=== PATIENT | male | born 1995 | race Caucasian/White ===

== ENCOUNTER 2016-08-03 16:33 | Outpatient (CLI) | payer OTHER | END 2016-08-03 16:34 | disposition EMS.NT | LOC: EMS 16:33 | PROVIDERS: ATTEND Surgery | DX: S05.90XA Unspecified injury of unspecified eye and orbit, initial encounter (principal); X58.XXXA Exposure to other specified factors, initial encounter; Y92.039 Unspecified place in apartment as the place of occurrence of the external cause ==

== ENCOUNTER 2016-08-03 17:19 | Emergency (ER) | payer OTHER ==
[2016-08-03] MEDS ORDERED: PROPARACAINE 0.5% OPHTH DROPS 15 ML ONE (17:23)
== END 2016-08-03 17:55 | disposition home or self-care (01) ==
DX: T52.0X1A Toxic effect of petroleum products, accidental (unintentional), initial encounter (principal); T26.91XA Corrosion of right eye and adnexa, part unspecified, initial encounter; Y93.89 Activity, other specified; H66.003 Acute suppurative otitis media without spontaneous rupture of ear drum, bilateral
CPT/HCPCS: 99283; 99284; J3490

== ENCOUNTER 2017-09-09 22:48 | Emergency (ER) | payer MEDICAID, OTHER ==
[2017-09-09] MEDS ORDERED: LOPERAMIDE 2 MG CAPSULE PO STA (23:14)
[2017-09-09] MEDS ORDERED: SODIUM CHLORIDE 0.9% 1,000 ML IV ONE (23:14)
[2017-09-09] MEDS ORDERED: ONDANSETRON 4 MG/2 ML VIAL IVP STA (23:14)
[2017-09-09] MEDS ORDERED: KETOROLAC 60 MG/2 ML VIAL IVP STA (23:14)
--- NOTE | 2017-09-09 23:15 | ED Physician Documentation ---
PD HPI NVD - Stated complaint Stated Complaint: NAUSEA/HEADACHE/DIZZY - Chief complaint Chief Complaint: Abd Pain - History obtained from History obtained from: Patient - History of Present Illness Timing - onset: Today Timing - details: Abrupt onset, Still present Contributing factors: Bad food Similar symptoms before: No diagnosis Recently seen: Not recently seen - Additonal information Additional information: Patient is a 22 year old male with no significant past medical history who is presenting to the emergency department for nausea, vomiting and diarrhea. patient states that he ate [employer] earlier this afternoon. Patient states that about 2 hours ago he has been vomiting and had multiple episodes of diarrhea. Patient states that he called [employer] and they stated that another person had called as well with similar complaints. Review of Systems Ten Systems: 10 systems reviewed and negative GI: reports: Abdominal Pain, Nausea, Vomiting, Diarrhea PD PAST MEDICAL HISTORY - Past Medical History Cardiovascular: None Respiratory: None Endocrine/Autoimmune: None GI: None Psych: None Musculoskeletal: None - Past Surgical History Past Surgical History: Yes HEENT: Tonsil/Adenoidectomy - Present Medications Home Medications: Ambulatory Orders Medication Instructions Recorded Confirmed Amoxicillin 500 mg PO TID #30 capsule 08/03/16 Ondansetron Odt [Zofran] 4 mg TL Q6H PRN #14 tablet 09/10/17 - Allergies Allergies/Adverse Reactions: Allergies Allergy/AdvReac Type Severity Reaction Status Date / Time No Known Drug Allergies Allergy Verified 08/03/16 17:30 - Social History Does the pt smoke?: No Smoking Status: Never smoker Does the pt drink ETOH?: No Does the pt have substance abuse?: No - Immunizations Immunizations are current?: Yes - POLST Patient has POLST: No PD ED PE NORMAL - Vitals Vital signs reviewed: Yes - General General: Alert and oriented X 3 - HEENT HEENT: Atraumatic - Cardiac Cardiac: RRR, No murmur - Respiratory Respiratory: No respiratory distress - Derm Derm: Normal color, Warm and dry - Extremities Extremities: No deformity - Neuro Neuro: Alert and oriented X 3 PD ED PE EXPANDED - HEENT HEENT: Dry mucous membranes - Abdomen Abdomen: Tender to palpation, Generalized/diffuse. No: Rebound, Guarding Results - Vitals Vitals: Vital Signs - 24 hr 09/09/17 23:02 Temperature 37.2 C Heart Rate 107 H Respiratory 20 Rate Blood Pressure 101/59 L O2 Saturation 97 Oxygen O2 Source Room air PD MEDICAL DECISION MAKING - ED course Complexity details: reviewed old records, reviewed results, re-evaluated patient , d/w patient ED course: patient was seen and examined at bedside. patient was treated with a fluid bolus, zofran and loperamide. patient had no further episodes of emesis while in the emergency department. patient required no further work up at this time and was stable for discharge with outpatient follow up. - Sepsis Event Vital Signs: Vital Signs - 24 hr 09/09/17 23:02 Temperature 37.2 C Heart Rate 107 H Respiratory 20 Rate Blood Pressure 101/59 L O2 Saturation 97 Oxygen O2 Source Room air Departure - Departure Disposition: Home, Self Care Clinical Impression: Gastroenteritis Condition: Good Instructions: ED Gastroenteritis Bacterial Follow-Up: primary,care provider [Other] - As Needed Prescriptions: Ondansetron Odt [Zofran] 4 mg TL Q6H PRN #14 tablet PRN Reason: Nausea / Vomiting Comments: Your symptoms today are likely secondary to food poisoning or bacterial gastroenteritis. You should take the zofran as needed for nausea and stay well hydrated. You can take loperamide (Imodium) as needed for diarrhea. You should follow up with your doctor if symptoms persist. you may return to he emergency department for new, worsening or uncontrollable symptoms.
[2017-09-10] MEDS ORDERED: ONDANSETRON ODT 4 MG Prepack 2 TL STA (00:08)
[2017-09-10 00:25] VITALS: BP 110/60
== END 2017-09-10 00:23 | disposition home or self-care (01) ==
LOC: ED 22:48
DX: K52.9 Noninfective gastroenteritis and colitis, unspecified (principal)
CPT/HCPCS: 96361; 96374; 96375; 99283; A9270

== ENCOUNTER 2017-10-29 08:14 | Emergency (ER) | payer MEDICAID ==
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
[2017-10-29 08:45] VITALS: BP 126/81
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
== END 2017-10-29 09:50 | disposition home or self-care (01) ==
LOC: EDUNIT# → ED 08:14
DX: S63.502A Unspecified sprain of left wrist, initial encounter (principal); X50.9XXA Other and unspecified overexertion or strenuous movements or postures, initial encounter; Y92.009 Unspecified place in unspecified non-institutional (private) residence as the place of occurrence of the external cause
CPT/HCPCS: 29125; 99282; 99283

== ENCOUNTER 2017-10-29 17:46 | Outpatient (CLI) | payer MEDICAID | END 2017-10-29 17:47 | disposition critical access hospital (66) | LOC: EMS 17:46 | PROVIDERS: ATTEND Surgery | DX: M25.532 Pain in left wrist (principal); Y04.8XXA Assault by other bodily force, initial encounter | CPT/HCPCS: A0425; A0429; A0999 ==

== ENCOUNTER 2017-12-07 12:07 | Emergency (ER) | payer OTHER, MEDICAID ==
[2017-12-07 12:14] VITALS: BP 135/84
[2017-12-07] MEDS ORDERED: BUPIVACAINE 0.5% PF 10 ML VIAL SUBQ STA (12:59)
--- NOTE | 2017-12-07 13:00 | ED Physician Documentation ---
History of Present Illness - Stated complaint Stated Complaint: LEFT PINKY LAC - Chief complaint Chief Complaint: Laceration PD PAST MEDICAL HISTORY - Past Medical History Past Medical History: No Cardiovascular: None Respiratory: None Endocrine/Autoimmune: None GI: None Psych: None Musculoskeletal: None - Past Surgical History Past Surgical History: Yes HEENT: Tonsil/Adenoidectomy - Present Medications Home Medications: Ambulatory Orders Medication Instructions Recorded Confirmed No Known Home Medications 12/07/17 12/07/17 - Allergies Allergies/Adverse Reactions: Allergies Allergy/AdvReac Type Severity Reaction Status Date / Time No Known Drug Allergies Allergy Verified 12/07/17 12:14 - Social History Does the pt smoke?: No Smoking Status: Never smoker Does the pt drink ETOH?: No Does the pt have substance abuse?: No - Immunizations Immunizations are current?: Yes - POLST Patient has POLST: No Results - Vitals Vitals: Vital Signs - 24 hr 12/07/17 12:12 Temperature 37 C Heart Rate 67 Respiratory 18 Rate Blood Pressure 135/84 H O2 Saturation 99 Oxygen O2 Source Room air Procedures - Laceration (location) L 5th finger posterior mid phalange Length in cm: 1.5 Wound type: Linear Neurovascular status: Sensory intact, Motor intact Tendon involvement: Tendon intact Anesthesia: Marcaine 0.5% Wound Preparation: Irrigated copiously NS (tech Berta) Skin layer closure: Nylon, Size #-0 - enter number (5), Sutures - enter # (1) Other: Patient tolerated well, No complications, Neurovascular intact, Dressing applied, Tetanus UTD, Other (splint to avoid moving) Complexity: Simple PD MEDICAL DECISION MAKING - Sepsis Event Vital Signs: Vital Signs - 24 hr 12/07/17 12:12 Temperature 37 C Heart Rate 67 Respiratory 18 Rate Blood Pressure 135/84 H O2 Saturation 99 Oxygen O2 Source Room air Departure - Departure Disposition: 01 Home, Self Care Clinical Impression: Laceration Condition: Good Instructions: ED Laceration Hand Comments: Keep the wound clean Apply antibiotic ointment every day Sutures out in 7 days Wear the splint to avoid bending the finger and breaking the wound open Even with good wound care all wound have the chance of getting infected - please return for any signs of infection such as redness, streaks, drainage. Forms: Activity restrictions
[2017-12-07] MEDS ORDERED: BACITRACIN OINT TOP ONE (14:14)
== END 2017-12-07 14:45 | disposition home or self-care (01) ==
LOC: ED 12:07
DX: S61.217A Laceration without foreign body of left little finger without damage to nail, initial encounter (principal); W26.0XXA Contact with knife, initial encounter; Y99.0 Civilian activity done for income or pay
CPT/HCPCS: 1040M; 12001; 99281; 99283; A9270

== ENCOUNTER 2018-02-28 16:57 | Outpatient (CLI) | payer MEDICAID ==
--- NOTE | 2018-03-01 16:44 | XRAY Report ---
Reason: KNEE JOINT PAIN, RT, ANKLE JOINT PAIN, RT Procedure Date: 02/28/2018 Accession Number: [id number] / [id number] Procedure: XR - Ankle 3 View RT CPT Code: FULL RESULT: EXAM: RIGHT ANKLE RADIOGRAPHY EXAM DATE: 02/28/2018 05:44 PM. CLINICAL HISTORY: KNEE JOINT PAIN, RT, ANKLE JOINT PAIN, RT. COMPARISON: None. TECHNIQUE: 3 views. FINDINGS: Bones: No fractures or bone lesions. Joints: No effusion. No subluxations. The ankle mortise is normally aligned. Soft Tissues: No soft tissue swelling. IMPRESSION: Normal ankle radiography. RADIA
--- NOTE | 2018-03-01 16:45 | XRAY Report ---
Reason: KNEE JOINT PAIN, RT, ANKLE JOINT PAIN, RT Procedure Date: 02/28/2018 Accession Number: [id number] / [id number] Procedure: XR - Knee 3 View RT CPT Code: FULL RESULT: EXAM: RIGHT KNEE RADIOGRAPHY EXAM DATE: 02/28/2018 05:44 PM. CLINICAL HISTORY: KNEE JOINT PAIN, RT, ANKLE JOINT PAIN, RT. COMPARISON: None. TECHNIQUE: 3 views. FINDINGS: Bones: No fractures or bone lesions. Joints: No effusion. No subluxations. Soft Tissues: No soft tissue swelling. IMPRESSION: Normal knee radiography. RADIA
== END 2018-02-28 16:58 | disposition home or self-care (01) ==
LOC: DI 16:57
PROVIDERS: ATTEND Nurse Practitioner
DX: M25.561 Pain in right knee (principal); M25.571 Pain in right ankle and joints of right foot

== ENCOUNTER 2018-05-27 22:07 | Emergency (ER) | payer OTHER, MEDICAID ==
[2018-05-27] MEDS ORDERED: BUFFERED LIDOCAINE 10 ML SYRINGE SUBQ STA (23:34)
--- NOTE | 2018-05-28 00:18 | ED Physician Documentation ---
PD HPI UPPER EXT INJURY - Stated complaint Stated Complaint: L PINKY LAC - Chief complaint Chief Complaint: Laceration - History obtained from History obtained from: Patient, Family - History of Present Illness Location: Left, Finger (5th) Type of injury: Laceration Where injury occurred: Work Timing - onset: Today Timing - duration: Minutes Timing - details: Abrupt onset, Still present Improved by: Rest, Immobilization Worsened by: Moving, Palpating Associated symptoms: Numbness. No: Weakness Contributing factors: Work related. 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 He states that he has lost sensation to the distal right pinky after a prior laceration and he is not able to feel the tip of his finger adequately he believes this may be why he lacerated his finger today. Review of Systems Constitutional: denies: Fever Eyes: denies: Decreased vision Ears: denies: Ear pain Nose: denies: Congestion Throat: denies: Sore throat Respiratory: denies: Cough GI: denies: Vomiting : denies: Dysuria Skin: denies: Rash Musculoskeletal: reports: Extremity pain. denies: Neck pain, Back pain Neurologic: reports: Numbness. denies: Generalized weakness, Focal weakness, Difficulty speaking PD PAST MEDICAL HISTORY - Past Medical History Past Medical History: No Cardiovascular: None Respiratory: None Neuro: None Endocrine/Autoimmune: None GI: None : None HEENT: None Psych: None Musculoskeletal: None Derm: None - Past Surgical History Past Surgical History: Yes HEENT: Tonsil/Adenoidectomy - Present Medications Home Medications: Ambulatory Orders Medication Instructions Recorded Confirmed No Known Home Medications 12/07/17 12/07/17 - Allergies Allergies/Adverse Reactions: Allergies Allergy/AdvReac Type Severity Reaction Status Date / Time No Known Drug Allergies Allergy Verified 12/07/17 12:14 - Social History Does the pt smoke?: No Smoking Status: Never smoker Does the pt drink ETOH?: No Does the pt have substance abuse?: No - Immunizations Immunizations are current?: Yes - POLST Patient has POLST: No PD ED PE NORMAL - Vitals Vital signs reviewed: Yes (normal ) - General General: Alert and oriented X 3, No acute distress, Well developed/nourished - HEENT HEENT: Atraumatic, PERRL, EOMI - Respiratory Respiratory: No respiratory distress - Derm Derm: Normal color, Warm and dry, No rash - Extremities Extremities: Other (There is a 3cm laceration to the radial surface of the 5th digit on the left side and the laceration involves the cuticle but not the nail. 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, No motor deficit, No sensory deficit, Normal speech Eye Opening: Spontaneous Motor: Obeys Commands Verbal: Oriented GCS Score: 15 - Psych Psych: Normal mood, Normal affect Results - Vitals Vitals: Vital Signs - 24 hr 05/27/18 05/28/18 22:12 00:32 Temperature 36.6 C Heart Rate 66 69 Respiratory 20 16 Rate Blood Pressure 123/72 106/72 O2 Saturation 98 98 Oxygen O2 Source Room air Procedures - Laceration (location) left pinky Length in cm: 3 Wound type: Curved, Irregular, Flap, Clean Anesthesia: Lidocaine 1%, With bicarb Wound Preparation: Hibiclens, Irrigated copiously NS, Wound explored, To the base, Multiple flaps aligned Skin layer closure: Nylon, Interrupted, Size #-0 - enter number (5-0), Sutures - enter # (7) Other: Patient tolerated well, Neurovascular intact, Dressing applied, Tetanus UTD Complexity: Simple PD MEDICAL DECISION MAKING - ED course Complexity details: reviewed old records, reviewed results, re-evaluated patient, considered differential, d/w patient, d/w family ED course: 22 y/o male with a pinky laceration is repaired by suturing. Departure - Departure Disposition: 01 Home, Self Care Clinical Impression: Finger laceration Condition: Stable Instructions: ED Laceration Hand Follow-Up: Joselin Kinney DNP [Primary Care Provider] - Comments: Sutures should be removed in 7-10 days. Forms: Activity restrictions Discharge Date/Time: 05/28/18 00:35
[2018-05-28 00:33] VITALS: BP 106/72
== END 2018-05-28 00:35 | disposition home or self-care (01) ==
LOC: ED 22:07
DX: S61.217A Laceration without foreign body of left little finger without damage to nail, initial encounter (principal); W26.0XXA Contact with knife, initial encounter; Y93.G1 Activity, food preparation and clean up; Y92.89 Other specified places as the place of occurrence of the external cause; Y99.0 Civilian activity done for income or pay
CPT/HCPCS: 99283

== ENCOUNTER 2018-05-28 17:22 | Emergency (ER) | payer OTHER, MEDICAID ==
[2018-05-28 17:31] VITALS: BP 114/61
--- NOTE | 2018-05-28 17:35 | ED Physician Documentation ---
History of Present Illness - Stated complaint Stated Complaint: NEED RE-STITCHING LT FINGER - Chief complaint Chief Complaint: Laceration - History obtained from History obtained from: Patient - History of Present Illness Timing: Last night Pain level max: 8 - Additonal information Additional information: Patient is a previously healthy, right-handed 22-year-old male who was seen in the ED last night for accidental laceration to left pinky finger and was treated appropriately, including placement of stitches. Tetanus was updated. Patient denies new injury or signs of infection, but does report mild erythema and swelling, as well as pain to the area surrounding stitching. Patient also notes mild ecchymosis to this area. Patient reports previous injury to the left pinky finger that left him with decreased mobility that required physical therapy. Patient reports no improvement of symptoms with ice or elevation. Movement w orsens discomfort. Review of Systems Skin: reports: Laceration (s) Musculoskeletal: reports: Extremity pain PD PAST MEDICAL HISTORY - Past Medical History Past Medical History: No Cardiovascular: None Respiratory: None Neuro: None Endocrine/Autoimmune: None GI: None : None HEENT: None Psych: None Musculoskeletal: None Derm: None - Past Surgical History Past Surgical History: Yes HEENT: Tonsil/Adenoidectomy - Present Medications Home Medications: Ambulatory Orders Medication Instructions Recorded Confirmed No Known Home Medications 12/07/17 12/07/17 - Allergies Allergies/Adverse Reactions: Allergies Allergy/AdvReac Type Severity Reaction Status Date / Time No Known Drug Allergies Allergy Verified 05/28/18 17:29 - Social History Does the pt smoke?: No Smoking Status: Never smoker Does the pt drink ETOH?: No Does the pt have substance abuse?: No - Immunizations Immunizations are current?: Yes - POLST Patient has POLST: No PD ED PE NORMAL - General General: Alert and oriented X 3, No acute distress, Well developed/nourished - Cardiac Cardiac: Strong equal pulses (cap refill brisk) - Respiratory Respiratory: No respiratory distress - Derm Derm: Other (Stitches intact over distal aspect of left pinky finger pad with mild surrounding ecchymosis present. No significant damage noted to the nail or nailbed. No subungual hematoma.) - Extremities Extremities: No deformity, No tenderness to palpate - Neuro Neuro: Alert and oriented X 3, No sensory deficit. No: No motor deficit (Given pain and swelling, patient has slightly decreased function at PIP and DIP joint of left pinky finger. Patient also reports history of decreased movement from prior injury.) Results - Vitals Vitals: Vital Signs - 24 hr 05/28/18 17:28 Temperature 36.6 C Heart Rate 65 Respiratory 20 Rate Blood Pressure 114/61 O2 Saturation 100 Oxygen O2 Source Room air PD MEDICAL DECISION MAKING - ED course Complexity details: reviewed old records, considered differential, d/w patient ED course: Patient presenting for recheck of wound. Patient was seen in this ED last evening after accidental laceration to his left pinky finger. Patient was appropriately treated, including stitches placed. Patient reports pressure sensation and pain to area, but denies drainage or erythema that would be indicative of infection. Physical exam is relatively unremarkable. No wound dehiscence or signs of wound infection. Do not see other complications such as subungual hematoma. No concerns for bone or tendon involvement. Patient did have previous injury to this finger that limited mobility. At this time, do not feel patient requires further interventions, but again discussed appropriate wound care, return precautions, suture removal, and follow-up. Patient voiced understanding and is comfortable with discharge plan. Departure - Departure Disposition: 01 Home, Self Care Clinical Impression: Visit for wound check Condition: Good Instructions: ED Laceration All Follow-Up: Joselin Kinney DNP [Primary Care Provider] - Within 3 Days Comments: Please keep wound clean and dry, using running water and soap to clean. Please follow bandaging instructions. May apply Neosporin or bacitracin 1-2 times daily if needed. May use ibuprofen/Tylenol, as well as elevation and ice to help with swelling and pain. Follow-up with primary care physician in next 2-3 days and return as instructed for suture removal. Return to ED sooner if experience worsening symptoms or other concerns.
== END 2018-05-28 17:49 | disposition home or self-care (01) ==
LOC: ED 17:22
DX: S61.217A Laceration without foreign body of left little finger without damage to nail, initial encounter (principal); W26.0XXA Contact with knife, initial encounter; Y93.G1 Activity, food preparation and clean up; Y92.89 Other specified places as the place of occurrence of the external cause; Y99.0 Civilian activity done for income or pay; G89.18 Other acute postprocedural pain
CPT/HCPCS: 1040M; 12002; 99282; 99283

== ENCOUNTER 2018-08-31 14:44 | Outpatient (CLI) | payer MEDICAID ==
--- NOTE | 2018-08-31 16:10 | XRAY Report ---
Reason: SHORTNESS OF BREATH Procedure Date: 08/31/2018 Accession Number: [id number] / [id number] Procedure: WCP - Chest 2 View X-Ray CPT Code: 81371 FULL RESULT: EXAM: CHEST RADIOGRAPHY EXAM DATE: 08/31/2018 02:54 PM. CLINICAL HISTORY: SHORTNESS OF BREATH. COMPARISON: None. TECHNIQUE: 2 views. FINDINGS: Lungs/Pleura: No focal opacities evident. No pleural effusion. No pneumothorax. High lung volumes without abnormal flattening of diaphragms. Mediastinum: Heart and mediastinal contours are unremarkable. Other: None. IMPRESSION: High lung volumes with no acute cardiopulmonary abnormality detected. While this inspiratory result can be normal in this age group and there is no overt airway thickening, reactive airways disease may also demonstrate the same radiographic appearance. RADIA
[2018-08-31] MEDS ORDERED: IOVERSOL 320 100 ML VIAL IVP ONE (16:35)
== END 2018-08-31 14:45 | disposition home or self-care (01) ==
LOC: DI.WCP 14:44
PROVIDERS: ATTEND Physician Assistant
DX: R06.02 Shortness of breath (principal)
CPT/HCPCS: 71046

== ENCOUNTER 2018-08-31 15:59 | Outpatient (CLI) | payer MEDICAID ==
[2018-08-31 16:12] LABS: BASOPHILS # (AUTO) 0.1 10^3/uL (0.0-0.1); BASOPHILS % (AUTO) 0.6 %; EOSINOPHILS # (AUTO) 0.5 10^3/uL (0.0-0.7); EOSINOPHILS % (AUTO) 5.9 %; LYMPHOCYTES # (AUTO) 2.2 10^3/uL (1.5-3.5); LYMPHOCYTES % (AUTO) 27.6 %; MEAN CORPUSCULAR HEMOGLOBIN 29.9 pg (27.0-31.0); MEAN CORPUSCULAR HGB CONC 33.3 g/dL (32.0-36.0); MEAN CORPUSCULAR VOLUME 89.8 fL (80.0-94.0); MONOCYTES # (AUTO) 0.6 10^3/uL (0.0-1.0); MONOCYTES % (AUTO) 8.1 %; NEUTROPHILS # (AUTO) 4.5 10^3/uL (1.5-6.6); NEUTROPHILS % (AUTO) 57.5 %; PLT - PLATELET COUNT 213 10^3/uL (130-450); RED BLOOD COUNT 5.68 10^6/uL (4.70-6.10); RED CELL DISTRIBUTION WIDTH 12.8 % (12.0-15.0); WHITE BLOOD COUNT 7.8 x10^3/uL (4.8-10.8)
[2018-08-31 16:24] LABS: ALBUMIN 5.1 g/dL (3.2-5.5); ALBUMIN/GLOBULIN RATIO 1.6 (1.0-2.2); BILIRUBIN,TOTAL 0.9 mg/dL (0.2-1.0); CREATININE 0.9 mg/dL (0.6-1.2); TOTAL PROTEIN 8.3 g/dL (6.7-8.2)
[2018-08-31] MEDS ORDERED: IOVERSOL 320 100 ML VIAL IVP ONE (18:50)
--- NOTE | 2018-08-31 19:20 | CT Report ---
Reason: CHEST PAIN,SHORTNESS OF BREATH Procedure Date: 08/31/2018 Accession Number: [id number] / [id number] Procedure: CT - ANGIO CHEST W/WO CPT Code: FULL RESULT: EXAM: CT ANGIOGRAM CHEST EXAM DATE: 08/31/2018 04:45 PM. CLINICAL HISTORY: CHEST PAIN,SHORTNESS OF BREATH. COMPARISON: CHEST 2 VIEW 08/31/2018 2:39 PM. TECHNIQUE: Routine helical imaging was performed through the chest in the pulmonary arterial phase. IV Contrast: 80 cc Optiray 320. Reconstructions: Coronal 3-D MIP reconstructions.Sagittal and coronal. In accordance with CT protocol optimization, one or more of the following dose reduction techniques were utilized for this exam: automated exposure control, adjustment of mA and/or KV based on patient size, or use of iterative reconstructive technique. FINDINGS: Pulmonary Arteries: Diagnostic quality: Adequate through the segmental arteries. No evidence for acute or chronic pulmonary emboli. Lungs/Pleura: No suspicious nodularity, mass, or consolidation. No pleural effusions. Nonspecific mild diffuse bronchial wall thickening is present. Mediastinum: Imaged portions of the thyroid are grossly unremarkable. Residual thymus is present. Thoracic aorta and main pulmonary artery are normal caliber. Heart size is within normal limits. No pericardial effusion. Lymph Nodes: No mediastinal, hilar, or axillary adenopathy. Bones: No suspicious osseous lesions. Visualized chest wall is grossly unremarkable. Partially Imaged Upper Abdomen: No acute abnormalities. IMPRESSION: No acute or chronic pulmonary embolus. Nonspecific mild diffuse bronchial wall thickening, may reflect reactive airways disease or other etiology such as infection. RADIA
== END 2018-08-31 16:00 | disposition home or self-care (01) ==
LOC: DI 15:59
PROVIDERS: ATTEND Physician Assistant
DX: R06.02 Shortness of breath (principal); R07.9 Chest pain, unspecified
CPT/HCPCS: 36415; 71046; 71275; 80053; 83880; 84443; 85025; Q9967